=== PATIENT | male | born 1965 | race Caucasian/White ===

== ENCOUNTER 2018-01-19 11:57 | Inpatient (IN) | payer OTHER, MEDICAID ==
[~2018-01-19] VITALS: Ht 165.1 cm; Wt 55.4 kg
[2018-01-19 12:07] VITALS: Ht 165.1 cm; Wt 55.4 kg
[2018-01-19 13:02] LABS: BASOPHIL % 0.1 % (0-2); PLATELET COUNT 240 x10^3mcL (130-400)
[2018-01-19 13:12] LABS: RED CELL DISTRIBUTION WIDTH 17.3 % (11.5-14.5)
[2018-01-19 13:15] LABS: CALCIUM 9.3 mg/dL (8.5-10.1); CARBON DIOXIDE 26.2 mmol/L (21-32); CHLORIDE SERUM 101 mmol/L (98-107); CREATININE SERUM 0.8 mg/dL (0.7-1.3); GFR1 > 60 mL/min; GLUCOSE SERUM 122 mg/dL (74-106); POTASSIUM SERUM 3.7 mmol/L (3.5-5.1); SODIUM SERUM 139 mmol/L (136-145)
[2018-01-19 13:20] LABS: ALKALINE PHOSPHATASE 95 U/L (46-116); ALT/SGPT 8 U/L (16-63); AST/SGOT 23 U/L (15-37); BILIRUBIN TOTAL 0.35 mg/dL (0.20-1.00); TOTAL PROTEIN, SERUM 6.8 g/dL (6.4-8.2)
[2018-01-19 13:29] LABS: ALBUMIN 2.8 g/dL (3.4-5.0)
[2018-01-19 13:53] LABS: UA SPECIFIC GRAVITY 1.025 (1.005-1.035); microscopic required? YES; urine erythrocyte NEGATIVE (NEGATIVE)
[2018-01-19] MEDS ORDERED: OLANZAPINE10 MG PO (14:15)
[2018-01-19] MEDS ORDERED: LEVOTHYROXINE0.05 M2 PO (14:15)
[2018-01-19] MEDS ORDERED: LISINOPRIL2.5 MG PO (14:16)
[2018-01-19] MEDS ORDERED: GOOD SENSE ASPI81 M3 PO (14:16)
[2018-01-19] MEDS ORDERED: LACTULOSE10 GM/152 PO (14:17)
[2018-01-19] MEDS ORDERED: FERROUS SULFAT325 M2 PO (14:17)
[2018-01-19] MEDS ORDERED: DEPL PO (14:17)
[2018-01-19] MEDS ORDERED: QUETIAPINE FUMA50 M2 PO (14:18)
[2018-01-19] MEDS ORDERED: MUPIROCIN2% TOP (14:19)
[2018-01-19] MEDS ORDERED: LIPI10 PO (14:20)
[2018-01-19] MEDS ORDERED: OLANZAPINE20 M1 PO (14:20)
[2018-01-19] MEDS ORDERED: APAP325 MG PO (14:22)
[2018-01-19 14:39] LABS: MAGNESIUM 1.9 mg/dL (1.8-2.4); PHOSPHOROUS 1.8 mg/dL (2.5-4.9)
[2018-01-19 14:45] LABS: T3 TOTAL 0.52 ng/mL
[2018-01-19 15:04] VITALS: BP 123/89
[2018-01-19 15:13] LABS: FREE T4 1.06 ng/dL (0.76-1.46); FREE THYROXINE INDEX 2.3 ug/dL (1.4-4.5)
[2018-01-19 15:43] LABS: CHOLESTEROL/HDL RATIO 5.3
[2018-01-19 17:50] VITALS: BP 126/82
[2018-01-19 20:22] VITALS: BP 116/78
[2018-01-20 06:01] VITALS: BP 113/80
[2018-01-20 06:49] LABS: BASOPHIL % 0.1 % (0-2); PLATELET COUNT 185 x10^3mcL (130-400)
[2018-01-20 06:50] LABS: RED CELL DISTRIBUTION WIDTH 17.4 % (11.5-14.5)
[2018-01-20 06:59] LABS: CALCIUM 8.3 mg/dL (8.5-10.1); CARBON DIOXIDE 25.3 mmol/L (21-32); CHLORIDE SERUM 105 mmol/L (98-107); CREATININE SERUM 0.5 mg/dL (0.7-1.3); GFR1 > 60 mL/min; GLUCOSE SERUM 79 mg/dL (74-106); MAGNESIUM 1.6 mg/dL (1.8-2.4); PHOSPHOROUS 2.1 mg/dL (2.5-4.9); POTASSIUM SERUM 3.6 mmol/L (3.5-5.1); SODIUM SERUM 138 mmol/L (136-145)
[2018-01-20 08:03] VITALS: BP 113/73
[2018-01-20 12:16] VITALS: BP 110/79
[2018-01-20 16:03] VITALS: BP 113/76
[2018-01-20 20:22] VITALS: BP 116/78
[2018-01-21 05:40] LABS: BASOPHIL % 0.3 % (0-2); PLATELET COUNT 199 x10^3mcL (130-400)
[2018-01-21 05:51] VITALS: BP 122/76
[2018-01-21 06:03] LABS: CALCIUM 7.2 mg/dL (8.5-10.1); CHLORIDE SERUM 107 mmol/L (98-107); CREATININE SERUM 0.4 mg/dL (0.7-1.3); GFR1 > 60 mL/min; GLUCOSE SERUM 90 mg/dL (74-106); MAGNESIUM 1.8 mg/dL (1.8-2.4); PHOSPHOROUS 2.8 mg/dL (2.5-4.9); SODIUM SERUM 143 mmol/L (136-145)
[2018-01-21 06:54] LABS: RED CELL DISTRIBUTION WIDTH 17.7 % (11.5-14.5)
[2018-01-21 09:29] VITALS: BP 112/70
[2018-01-21 12:48] VITALS: BP 118/83
[2018-01-21 16:07] VITALS: BP 126/93
[2018-01-21 21:56] VITALS: BP 106/69
[2018-01-22 05:50] VITALS: BP 114/77
[2018-01-22 07:22] LABS: BASOPHIL % 0.3 % (0-2); PLATELET COUNT 258 x10^3mcL (130-400)
[2018-01-22 07:31] LABS: CALCIUM 7.7 mg/dL (8.5-10.1); CARBON DIOXIDE 26.1 mmol/L (21-32); CHLORIDE SERUM 107 mmol/L (98-107); CREATININE SERUM 0.5 mg/dL (0.7-1.3); GFR1 > 60 mL/min; GLUCOSE SERUM 79 mg/dL (74-106); MAGNESIUM 1.9 mg/dL (1.8-2.4); PHOSPHOROUS 2.5 mg/dL (2.5-4.9); POTASSIUM SERUM 3.7 mmol/L (3.5-5.1); SODIUM SERUM 142 mmol/L (136-145)
[2018-01-22 07:35] LABS: RED CELL DISTRIBUTION WIDTH 17.4 % (11.5-14.5)
[2018-01-22 09:27] VITALS: BP 102/76
[2018-01-22 16:55] VITALS: BP 122/78
[2018-01-22 17:10] VITALS: BP 102/76
[2018-01-22 20:14] VITALS: BP 114/76
[2018-01-23 05:31] VITALS: BP 109/75
[2018-01-23 09:22] VITALS: BP 113/81
[2018-01-23 15:18] LABS: BASOPHIL % 0.5 % (0-2); PLATELET COUNT 274 x10^3mcL (130-400)
[2018-01-23 15:24] LABS: RED CELL DISTRIBUTION WIDTH 17.8 % (11.5-14.5)
[2018-01-23 15:59] LABS: CALCIUM 8.9 mg/dL (8.5-10.1); CARBON DIOXIDE 26.8 mmol/L (21-32); CHLORIDE SERUM 106 mmol/L (98-107); CREATININE SERUM 0.7 mg/dL (0.7-1.3); GFR1 > 60 mL/min; GLUCOSE SERUM 91 mg/dL (74-106); MAGNESIUM 1.9 mg/dL (1.8-2.4); PHOSPHOROUS 3.6 mg/dL (2.5-4.9); POTASSIUM SERUM 4.2 mmol/L (3.5-5.1); SODIUM SERUM 140 mmol/L (136-145)
[2018-01-23 16:09] VITALS: BP 113/81
[2018-01-23] MEDS ORDERED: BD LACTINEX1.4 MG PO (17:41)
[2018-01-23] MEDS ORDERED: SENNA8.6 M2 PO (17:41)
[2018-01-23] MEDS ORDERED: MIRALAX17 GM/Dose PO (17:41)
[2018-01-23] MEDS ORDERED: COLACE100 MG PO (17:41)
== END 2018-01-23 18:30 | DRG 871 ==
LOC: ED 11:57 → DU 13:46 → MU 13:46 → DU 14:59 → MU 01-21 21:04
PROVIDERS: Emergency Medicine; Family Medicine; Internal Medicine
DX: A41.9 Sepsis, unspecified organism (principal); E43 Unspecified severe protein-calorie malnutrition; N17.0 Acute kidney failure with tubular necrosis; J69.0 Pneumonitis due to inhalation of food and vomit; Z68.1 Body mass index [BMI] 19.9 or less, adult; R64 Cachexia; R65.20 Severe sepsis without septic shock; K52.9 Noninfective gastroenteritis and colitis, unspecified; K56.41 Fecal impaction; E86.0 Dehydration; Q90.9 Down syndrome, unspecified; F39 Unspecified mood [affective] disorder; E87.6 Hypokalemia; E83.42 Hypomagnesemia; G40.909 Epilepsy, unspecified, not intractable, without status epilepticus; E83.39 Other disorders of phosphorus metabolism; I10 Essential (primary) hypertension; E03.9 Hypothyroidism, unspecified
CPT/HCPCS: 83880; 84439; 87046; 87046-59; 92526-GN; 92610-GN; C9113; J0696; J1956; J2060; J3475; J3480; J3490; J7030; J7042; J7050; J7620; J8597; Q0092